=== PATIENT | male | born 1955 | race African-American/Black ===

== ENCOUNTER 2020-10-10 10:17 | Emergency (ER) | payer MEDICARE, OTHER ==
[2020-10-10] MEDS ORDERED: SODIUM CHLORIDE 0.9% 1,000 ML IV STA (11:28)
--- NOTE | 2020-10-10 11:30 | ED Physician Documentation ---
History of Present Illness - Stated complaint Stated Complaint: DIZZINESS/ HIGH BP - Chief complaint Chief Complaint: Neuro - History obtained from History obtained from: Patient - History of Present Illness Timing: Yesterday - Additonal information Additional information: 65-year-old male who is spent most of the last week out mowing the lawn and trimming hedges got up from the couch yesterday feeling very dizzy. He felt very lightheaded and shaky and when the symptoms did not resolve completely today the patient has come into the emergency department at the insistence of his . He denies is excessive trips to the bathroom to urinate and states that normally he will get up once or twice in the night to urinate. He has a history of hypertension which is previously been treated and he has been released from treatment and is no longer on medication. He denies specifically any weakness or numbness denies difficulty concentrating has no nausea. Review of Systems Constitutional: denies: Fever, Chills, Myalgias Eyes: denies: Decreased vision Ears: denies: Ear pain Nose: denies: Rhinorrhea / runny nose, Congestion Throat: denies: Sore throat Cardiac: denies: Chest pain / pressure, Palpitations Respiratory: reports: Cough. denies: Dyspnea GI: denies: Abdominal Pain, Nausea, Vomiting, Constipation, Diarrhea : denies: Dysuria, Frequency Skin: denies: Rash Musculoskeletal: denies: Neck pain, Back pain, Extremity pain Neurologic: denies: Generalized weakness, Focal weakness, Numbness PD PAST MEDICAL HISTORY - Past Medical History Past Medical History: Yes Cardiovascular: Hypertension - Past Surgical History Past Surgical History: Yes HEENT: Other - Present Medications Home Medications: Ambulatory Orders Medication Instructions Recorded Confirmed No Known Home Medications 10/10/20 10/10/20 - Allergies Allergies/Adverse Reactions: Allergies Allergy/AdvReac Type Severity Reaction Status Date / Time No Known Drug Allergies Allergy Verified 10/10/20 10:20 - Social History Does the pt smoke?: No Smoking Status: Never smoker Does the pt drink ETOH?: Yes ETOH Use: Wine Does the pt have substance abuse?: No - Immunizations Immunizations are current?: Yes - POLST Patient has POLST: No PD ED PE NORMAL - Vitals Vital signs reviewed: Yes (Tachycardic and hypertensive) - General General: Alert and oriented X 3, No acute distress, Well developed/nourished - HEENT HEENT: Atraumatic, PERRL, EOMI, Other (No nystagmus) - Neck Neck: Supple, no meningeal sign, No bony TTP - Cardiac Cardiac: RRR, No murmur - Respiratory Respiratory: No respiratory distress, Clear bilaterally - Abdomen Abdomen: Soft, Non tender - Back Back: No CVA TTP, No spinal TTP - Derm Derm: Normal color, Warm and dry, No rash - Extremities Extremities: No deformity, No edema - Neuro Neuro: Alert and oriented X 3, lottery manager 2-12 intact, No motor deficit, No sensory deficit, Normal speech Eye Opening: Spontaneous Motor: Obeys Commands Verbal: Oriented GCS Score: 15 - Psych Psych: Normal mood, Normal affect Results - Vitals Vitals: Vital Signs - 24 hr 10/10/20 10/10/20 10/10/20 10:20 11:07 12:47 Temperature 37.0 C 37.1 C Heart Rate 103 H 86 75 Respiratory 18 11 L 16 Rate Blood Pressure 173/99 H 194/99 H 181/96 H O2 Saturation 99 99 100 Oxygen O2 Source Room air - Labs Labs: Laboratory Tests 10/10/20 10/10/20 11:35 11:35 WBC 6.9 RBC 4.37 L Hgb 13.1 L Hct 39.4 L MCV 90.2 MCH 30.0 MCHC 33.2 RDW 15.2 H Plt Count 427 MPV 9.9 Neut # (Auto) 4.3 Lymph # (Auto) 1.7 [place] # (Auto) 0.8 Eos # (Auto) 0.1 Baso # (Auto) 0.0 Absolute Nucleated RBC 0.00 Nucleated RBC % 0.0 Sodium 139 Potassium 4.1 Chloride 104 Carbon Dioxide 25 Anion Gap 10.0 BUN 15 Creatinine 0.9 Estimated GFR (MDRD) 103 Glucose 96 Calcium 9.5 Total Bilirubin 0.6 AST 34 ALT 53 Alkaline Phosphatase 55 Total Protein 8.4 H Albumin 4.5 Globulin 3.9 Albumin/Globulin Ratio 1.2 Lipase 35 Procedures - IVC sono (time) 1120 Bedside IVC sono: IVC measures (cm) (0.84), Dehydration (est 2 liter deficit) PD MEDICAL DECISION MAKING - ED course Complexity details: reviewed results, re-evaluated patient, considered differential, d/w patient ED course: 65-year-old male spending the day outside working the past several days has developed dehydration and he is symptomatic. He is administered intravenous saline with improvement. Departure - Departure Disposition: 01 Home, Self Care Clinical Impression: Dehydration Condition: Stable Instructions: ED Dehydration Follow-Up: LEOBARDO Brown [Provider Group] Discharge Date/Time: 10/10/20 12:53
[2020-10-10 11:42] LABS: BASOPHILS % (AUTO) 0.4 %; EOSINOPHILS # (AUTO) 0.1 10^3/uL (0.0-0.7); EOSINOPHILS % (AUTO) 1.2 %; HCT - HEMATOCRIT 39.4 % (42.0-52.0); HGB - HEMOGLOBIN 13.1 g/dL (14.0-18.0); LYMPHOCYTES # (AUTO) 1.7 10^3/uL (1.5-3.5); MEAN CORPUSCULAR HGB CONC 33.2 g/dL (32.0-36.0); MEAN CORPUSCULAR VOLUME 90.2 fL (80.0-94.0); MEAN PLATELET VOLUME 9.9 fL (7.4-11.4); MONOCYTES # (AUTO) 0.8 10^3/uL (0.0-1.0); MONOCYTES % (AUTO) 11.2 %; NEUTROPHILS # (AUTO) 4.3 10^3/uL (1.5-6.6); NEUTROPHILS % (AUTO) 62.1 %; PLT - PLATELET COUNT 427 10^3/uL (130-450); RED BLOOD COUNT 4.37 10^6/uL (4.70-6.10); RED CELL DISTRIBUTION WIDTH 15.2 % (12.0-15.0); WHITE BLOOD COUNT 6.9 x10^3/uL (4.8-10.8)
[2020-10-10 11:52] LABS: ALBUMIN 4.5 g/dL (3.2-5.5); ALBUMIN/GLOBULIN RATIO 1.2 (1.0-2.2); BILIRUBIN,TOTAL 0.6 mg/dL (0.2-1.0); CALCIUM 9.5 mg/dL (8.5-10.3); CREATININE 0.9 mg/dL (0.6-1.2); POTASSIUM 4.1 mmol/L (3.5-5.0); TOTAL PROTEIN 8.4 g/dL (6.7-8.2)
[2020-10-10] MEDS ORDERED: NITROGLYCERIN 2% PASTE TOP STA (12:42)
[2020-10-10 12:48] VITALS: BP 181/96
== END 2020-10-10 12:53 | disposition home or self-care (01) ==
LOC: ED 10:17
DX: E86.0 Dehydration (principal)
CPT/HCPCS: 36415; 80053; 83690; 85025; 93005; 96360; 99282